=== PATIENT | female | born 1950 | race Caucasian/White ===

== ENCOUNTER 2023-07-04 16:00 | Inpatient (IN) ==
[2023-07-04 16:45] LABS: Venous Bicarbonate HCO3 26.9 mmol/L (24-28)
[2023-07-04 16:49] LABS: ABS Eosinophils 0.1 10^3/uL (0.0-0.5); ABS Lymphocytes 0.2 10^3/uL (1.0-4.8); ABS Neutrophils 9.9 10^3/uL (1.5-7.6); ABS Nucleated RBC 0.01 10^3/ul; Eosinophil % 1.3 %; Hematocrit 43.2 % (35-45); Hemoglobin 14.2 g/dL (11.5-14.3); Lymphocyte % 1.7 %; Mean Corpuscular Volume 90.8 fL (80-97); Mean Platelet Volume 9.1 fL (7.5-11.2); Nucleated Red Blood Cells % 0.1 %/100WBC (0.0-0.8); Platelet Count 178 10^3/uL (150-450); Red Blood Count 4.75 10^6/uL (3.63-4.92); Red Cell Distribution Width 15.1 % (12-17); White Blood Count 10.2 10^3/uL (3.8-11.8)
[2023-07-04 16:59] LABS: Activated Partial Thrombo Time 21.4 seconds (26.0-38.0); INR 1.01 (0.83-1.13)
[2023-07-04] MEDS: Piperacillin/Tazobac 3.375 BAG 3.375 GM/100 ML BAG IV ONE (17:01)
[2023-07-04] MEDS: Acetaminophen IV 1 GM/100ML 1,000 MG/100 ML BAG IV ONE (17:03)
[2023-07-04] MEDS: LACTATED RINGERS SEPSIS IV ONE (17:07)
[2023-07-04 17:20] LABS: Albumin/Globulin Ratio 0.9 (1-3); C Reactive Protein 10.66 mg/L (<8.01); Calcium 9.2 mg/dL (8.6-10.3); Creatinine, Serum 1.27 mg/dL (0.51-0.95); Direct Bilirubin 0.2 mg/dL (0.03-0.18); Globulin 4.5 g/dL (2-4); Indirect Bilirubin 0.4 mg/dL (0.3-1.0); Potassium 3.8 mmol/L (3.5-5.0); Total Bilirubin 0.6 mg/dL (0.2-1.0); Total Protein 8.5 g/dL (6.4-8.9); eGFR CKD-EPI 44.4 (>60)
[2023-07-04 18:39] LABS: High Sensitivity Troponin 1 Hr 7 pg/mL (<15)
[2023-07-04] MEDS ORDERED: NS 0.9% 1000 ml BAG 1,000 ML IV SCH (19:00)
[2023-07-04] MEDS: Iohexol 350 (CONTRAST) 500 ML MDV IV ONE (20:01)
[2023-07-04] MEDS: Lactated Ringers 1000 ml BAG 1,000 ML IV ONE (20:15)
[2023-07-04] MEDS ORDERED: Norepinephrine 4 MG/250mL D5W 4,000 MCG/250 ML BAG IV ONE (20:17)
[2023-07-04] MEDS ORDERED: Rocuronium 50 mg VIAL 10 mg/ml 5 ml VIAL (50 mg) ONE (20:29)
[2023-07-04] MEDS: Norepinephrine 4 MG/250mL D5W 4,000 MCG/250 ML BAG IV SCH (20:45)
[2023-07-04] MEDS: Ketamine HCL 50 mg/ml 10 ml VIAL (500 MG) IV ONE (20:57)
[2023-07-04] MEDS: Rocuronium 50 mg VIAL 10 mg/ml 5 ml VIAL (50 mg) IV ONE (20:58)
[2023-07-04] MEDS ORDERED: Norepinephrine 4 MG/250mL NS 4,000 MCG/250 ML BAG IV SCH (21:00)
[2023-07-04] MEDS ORDERED: Propofol 10 mg/ml 100 ML BTL 1,000 MG/100 ML BTL ONE (21:06)
[2023-07-04] MEDS: NS 0.9% 1000 ml BAG 1,000 ML IV ONE (21:56)
[2023-07-04] MEDS: Ondansetron 4 mg VIAL 2 MG/ML 2 ml VIAL IV ONE ×2 (21:59)
[2023-07-04] MEDS ORDERED: Vancomycin per Pharmacy 1 EA NOTE FOLLOW UP SCH (22:00)
[2023-07-04] MEDS ORDERED: Zosyn per Pharmacy NOTE FOLLOW UP SCH (22:00)
[2023-07-04 22:40] LABS: Resp Rate 16
[2023-07-04 22:44] LABS: PCO2 Arterial 46 mmHg (35-45); PO2 Arterial 225 mmHg (80-100)
[2023-07-05] MEDS: Propofol 10 mg/ml 100 ML BTL 1,000 MG/100 ML BTL IV SCH (00:20)
[2023-07-05] MEDS ORDERED: fentaNYL 100 mcg/2 ml 50 MCG/ML VIAL IV SLOW PU PRN (00:32)
[2023-07-05] MEDS: Vancomycin 1,250 MG in NS 0.9% 250 ml 250 ML IVPB ONE (02:22)
[2023-07-05] MEDS: ZOSYN 3.375 GM x ONE DOSE over 30 miuntes IV (02:32)
[2023-07-05 03:29] LABS: PCO2 Arterial 39 mmHg (35-45); PO2 Arterial 183 mmHg (80-100)
[2023-07-05 04:03] LABS: Urine Specific Gravity 1.049 (1.002-1.030)
[2023-07-05 04:04] LABS: Urine Appearance Clear; Urine Bilirubin Negative (Negative); Urine Blood Negative (Negative); Urine Color Yellow; Urine Glucose Negative (Negative); Urine Ketones Negative (Negative); Urine Nitrite Negative (Negative); Urine Protein Trace (Negative); Urine Urobilinogen 1+ (Negative)
[2023-07-05 04:53] LABS: ABS Basophils 0.1 10^3/uL (0.0-0.1); ABS Eosinophils 1.8 10^3/uL (0.0-0.5); ABS Lymphocytes 0.2 10^3/uL (1.0-4.8); ABS Monocytes 0.3 10^3/uL (0.0-0.9); ABS Neutrophils 11.8 10^3/uL (1.5-7.6); Eosinophil % 12.6 %; Hematocrit 40.1 % (35-45); Hemoglobin 13.5 g/dL (11.5-14.3); Lymphocyte % 1.7 %; Mean Corpuscular Hemoglobin 30.1 pg (27-33); Mean Corpuscular Hgb Conc 33.7 g/dL (31-36); Mean Corpuscular Volume 89.4 fL (80-97); Mean Platelet Volume 9.2 fL (7.5-11.2); Platelet Count 180 10^3/uL (150-450); Red Blood Count 4.49 10^6/uL (3.63-4.92); Red Cell Distribution Width 15.3 % (12-17); White Blood Count 14.3 10^3/uL (3.8-11.8)
[2023-07-05 05:11] LABS: Albumin 2.8 g/dL (3.2-5.2); Albumin/Globulin Ratio 0.8 (1-3); Calcium 7.5 mg/dL (8.6-10.3); Creatinine, Serum 1.07 mg/dL (0.51-0.95); Globulin 3.4 g/dL (2-4); Potassium 3.8 mmol/L (3.5-5.0); Total Bilirubin 0.6 mg/dL (0.2-1.0); Total Protein 6.2 g/dL (6.4-8.9); eGFR CKD-EPI 54.5 (>60)
[2023-07-05] MEDS: ZOSYN 3.375 GM Q8H per EXTENDED INFUSION IV SCH ×2 (05:11→07:11)
[2023-07-05] MEDS: Chlorhexidine MOUTHWASH 0.12% 15 ML UDC TOPICAL SCH (05:43)
[2023-07-05] MEDS: NS 0.9% 1000 ml BAG 1,000 ML IV SCH (07:11)
[2023-07-05] MEDS: Magnesium Sulfate 2 gm BAG 2 GM/50 ML BAG IVPB ONE (07:44)
[2023-07-05] MEDS: Enoxaparin 40 MG/0.4 ML SYR SUBCUT SCH (07:47)
[2023-07-05] MEDS: Pantoprazole VIAL 40 MG VIAL IV SCH (07:48)
[2023-07-05] MEDS: Magnesium Sulfate IV 1GM/100ML 1 GM/100 ML BAG IV ONE (09:55)
[2023-07-05] MEDS: Morphine ER 30 mg TAB ** extended release PO SCH (12:14)
[2023-07-05] MEDS: NS 0.9% 500 ml BAG 500 ML IV ONE (14:29)
[2023-07-05] MEDS ORDERED: Lactated Ringers 1000 ml BAG 1,000 ML IV SCH ×2 (15:00)
[2023-07-05] MEDS ORDERED: Albuterol HFA INHALER 8 gm MDI INH PRN (15:27)
[2023-07-05] MEDS: Nicotine PATCH 7 MG/24 HR PATCH TRANSDERM SCH (19:04)
[2023-07-05] MEDS: CMCS: FluvoxaMINE 50 mg TAB (NF) PO SCH (20:10)
[2023-07-05] MEDS: Triamcinolone 0.025% OINT 15 GM TUBE TOPICAL SCH (20:15)
[2023-07-06] MEDS: Morphine ER 30 mg TAB ** extended release PO ONE (01:14)
[2023-07-06 04:58] LABS: Hematocrit 33.2 % (35-45); Mean Corpuscular Hemoglobin 29.8 pg (27-33); Mean Corpuscular Hgb Conc 33.2 g/dL (31-36); Mean Platelet Volume 9.4 fL (7.5-11.2); Platelet Count 115 10^3/uL (150-450); Red Blood Count 3.69 10^6/uL (3.63-4.92); Red Cell Distribution Width 15.1 % (12-17); White Blood Count 8.7 10^3/uL (3.8-11.8)
[2023-07-06 05:36] LABS: Calcium 7.6 mg/dL (8.6-10.3); Creatinine, Serum 1.2 mg/dL (0.51-0.95); Magnesium 2.1 mg/dL (1.9-2.7); Potassium 3.7 mmol/L (3.5-5.0); eGFR CKD-EPI 47.5 (>60)
[2023-07-06] MEDS: Phenol 1.4% Throat Spray BTL MT PRN (05:55)
[2023-07-06] MEDS ORDERED: Vancomycin 1000 MG in NS 0.9% 250 ML IVPB SCH (06:00)
[2023-07-06 06:14] LABS: ABS Eosinophils 2.9 10^3/uL (0.0-0.5); ABS Lymphocytes 0.9 10^3/uL (1.0-4.8); ABS Monocytes 0.4 10^3/uL (0.0-0.9); ABS Neutrophils 4.2 10^3/uL (1.5-7.6); Eosinophil % 34.5 %; Lymphocyte % 10.9 %
[2023-07-07 07:29] LABS: Calcium 7.7 mg/dL (8.6-10.3); Creatinine, Serum 1.13 mg/dL (0.51-0.95); Potassium 4.4 mmol/L (3.5-5.0); eGFR CKD-EPI 51.1 (>60)
[2023-07-07 07:52] LABS: Hematocrit 35.9 % (35-45); Hemoglobin 11.9 g/dL (11.5-14.3); Mean Corpuscular Hemoglobin 30.1 pg (27-33); Mean Corpuscular Hgb Conc 33.1 g/dL (31-36); Mean Corpuscular Volume 90.8 fL (80-97); Mean Platelet Volume 10.2 fL (7.5-11.2); Platelet Count 111 10^3/uL (150-450); Red Blood Count 3.95 10^6/uL (3.63-4.92); Red Cell Distribution Width 15.5 % (12-17); White Blood Count 7.2 10^3/uL (3.8-11.8)
[2023-07-07 08:43] LABS: ABS Basophils 0.1 10^3/uL (0.0-0.1); ABS Eosinophils 2.5 10^3/uL (0.0-0.5); ABS Lymphocytes 0.9 10^3/uL (1.0-4.8); ABS Monocytes 0.4 10^3/uL (0.0-0.9); ABS Neutrophils 3.3 10^3/uL (1.5-7.6); Eosinophil % 34.5 %; Lymphocyte % 11.9 %
[2023-07-07 09:18] VITALS: BP 119/59
[2023-07-08] MEDS ORDERED: Vancomycin Trough Check NOTE FOLLOW UP ONE (05:30)
== END 2023-07-07 13:15 | disposition home or self-care (01) | DRG 871 ==
LOC: ED 16:00 → EDHOLD 21:18 → ICU 23:46 → MED 07-05 00:21
PROVIDERS: ADMIT Surgery Surgical Critical Care; ATTEND Internal Medicine

== ENCOUNTER 2024-03-12 01:09 | Inpatient (IN) ==
[2024-03-12 04:09] LABS: ABS Basophils 0.1 10^3/uL (0.0-0.1); ABS Lymphocytes 0.4 10^3/uL (1.0-4.8); ABS Monocytes 0.9 10^3/uL (0.0-0.9); ABS Neutrophils 15.9 10^3/uL (1.5-7.6); ABS Nucleated RBC 0.01 10^3/ul; Hemoglobin 13.6 g/dL (11.5-14.3); Lymphocyte % 2.1 %; Mean Corpuscular Hemoglobin 29.8 pg (27-33); Mean Corpuscular Volume 90.1 fL (80-97); Mean Platelet Volume 9.8 fL (7.5-11.2); Platelet Count 152 10^3/uL (150-450); Red Blood Count 4.55 10^6/uL (3.63-4.92); Red Cell Distribution Width 14.4 % (12-17); White Blood Count 17.2 10^3/uL (3.8-11.8)
[2024-03-12 04:22] LABS: Urine Appearance Extra Turbid; Urine Bacteria 3+ /HPF (Absent); Urine Bilirubin 1+ (Negative); Urine Blood 3+ (Negative); Urine Color Dark-Yellow; Urine Glucose Negative (Negative); Urine Ketones 2+ (Negative); Urine Nitrite 2+ (Negative); Urine Protein 2+ (>=100 mg/dL) (Negative); Urine Red Blood Cell 2+(6-10/hpf) /HPF (0-Trace); Urine Squamous Epithelial Cell Present /HPF (Absent); Urine Urobilinogen 3+ (Negative); Urine White Blood Cell 3+(>20/hpf) /HPF (0-Trace); Urine pH 6.5 (5.0-8.0)
[2024-03-12] MEDS ORDERED: Gabapentin 600 mg TAB (NF) PO ONE (04:55)
[2024-03-12 04:59] LABS: Calcium 8.3 mg/dL (8.6-10.3); Creatinine, Serum 0.91 mg/dL (0.51-0.95); Potassium 3.5 mmol/L (3.5-5.0); eGFR CKD-EPI 65.8 (>60)
[2024-03-12 05:09] LABS: Albumin 3.3 g/dL (3.2-5.2); Albumin/Globulin Ratio 0.9 (1-3); Globulin 3.8 g/dL (2-4); Total Protein 7.1 g/dL (6.4-8.9)
[2024-03-12] MEDS: cefTRIAXone 1 gm/50 mL D5W 1 GM/50 ML BAG IV ONE (05:17)
[2024-03-12] MEDS: NS 0.9% 1000 ml BAG 1,000 ML IV SCH ×2 (05:37→10:21)
[2024-03-12] MEDS: Morphine 4 MG/ML VIAL (1 ml) IV ONE (05:43)
[2024-03-12] MEDS ORDERED: Albuterol HFA INHALER 8 gm MDI INH PRN (09:50)
[2024-03-12] MEDS: Morphine ER 30 mg TAB ** extended release PO SCH (10:20)
[2024-03-12] MEDS: Linaclotide 290 mcg CAP (NF) PO SCH (10:23)
[2024-03-12] MEDS: Enoxaparin 40 MG/0.4 ML SYR SUBCUT SCH (18:32)
[2024-03-12] MEDS: CMC:FluvoxaMINE 50 mg TAB (NF) PO SCH (20:11)
[2024-03-13] MEDS: cefTRIAXone 1 gm/50 mL D5W 1 GM/50 ML BAG IV SCH (04:32)
[2024-03-13 06:03] LABS: ABS Basophils 0.1 10^3/uL (0.0-0.1); ABS Eosinophils 0.3 10^3/uL (0.0-0.5); ABS Lymphocytes 0.8 10^3/uL (1.0-4.8); ABS Monocytes 0.6 10^3/uL (0.0-0.9); ABS Neutrophils 7.7 10^3/uL (1.5-7.6); Eosinophil % 3.2 %; Hematocrit 39.4 % (35-45); Hemoglobin 13.2 g/dL (11.5-14.3); Mean Corpuscular Hemoglobin 30.2 pg (27-33); Mean Corpuscular Hgb Conc 33.4 g/dL (31-36); Mean Corpuscular Volume 90.6 fL (80-97); Mean Platelet Volume 10.7 fL (7.5-11.2); Nucleated Red Blood Cells % 0.1 %/100WBC (0.0-0.8); Platelet Count 138 10^3/uL (150-450); Red Blood Count 4.35 10^6/uL (3.63-4.92); Red Cell Distribution Width 14.6 % (12-17); White Blood Count 9.5 10^3/uL (3.8-11.8)
[2024-03-13 07:53] LABS: Anion Gap 11 mmol/L (2-16); Blood Urea Nitrogen 13 mg/dL (6-24); CO2 Carbon Dioxide 22 mmol/L (22-32); Calcium 7.5 mg/dL (8.6-10.3); Chloride 105 mmol/L (101-111); Creatinine, Serum 0.84 mg/dL (0.51-0.95); Glucose 70 mg/dL (70-100); Sodium 138 mmol/L (135-145); eGFR CKD-EPI 72.4 (>60)
[2024-03-13] MEDS: Aspirin EC 81 mg TAB.EC (enteric coated) PO SCH (09:24)
[2024-03-13 12:39] LABS: Magnesium 1.9 mg/dL (1.9-2.7)
[2024-03-13 13:03] LABS: Creatine Kinase 2290 U/L (10-223)
[2024-03-13] MEDS: Potassium Chlor 20 meq TAB.ER PO ONE (15:12)
[2024-03-13] MEDS: NS 0.9% 1000 ml BAG 1,000 ML IV SCH (16:59)
[2024-03-13] MEDS: Enoxaparin 40 MG/0.4 ML SYR SUBCUT SCH (18:29)
[2024-03-14 06:14] LABS: ABS Basophils 0.1 10^3/uL (0.0-0.1); ABS Eosinophils 0.5 10^3/uL (0.0-0.5); ABS Lymphocytes 0.5 10^3/uL (1.0-4.8); ABS Monocytes 0.5 10^3/uL (0.0-0.9); ABS Neutrophils 3.8 10^3/uL (1.5-7.6); Eosinophil % 9.6 %; Hematocrit 35.1 % (35-45); Hemoglobin 11.6 g/dL (11.5-14.3); Lymphocyte % 9.2 %; Mean Corpuscular Hgb Conc 33.1 g/dL (31-36); Mean Corpuscular Volume 90.8 fL (80-97); Mean Platelet Volume 10.2 fL (7.5-11.2); Nucleated Red Blood Cells % 0.1 %/100WBC (0.0-0.8); Platelet Count 160 10^3/uL (150-450); Red Blood Count 3.87 10^6/uL (3.63-4.92); Red Cell Distribution Width 14.4 % (12-17); White Blood Count 5.4 10^3/uL (3.8-11.8)
[2024-03-14 06:32] LABS: Creatinine, Serum 0.79 mg/dL (0.51-0.95); Magnesium 1.7 mg/dL (1.9-2.7); Potassium 4.1 mmol/L (3.5-5.0)
[2024-03-14] MEDS: Magnesium Sulfate 2 gm BAG 2 GM/50 ML BAG IVPB ONE (08:03)
[2024-03-15] MEDS: Sulfamethox/Trimethoprim DS TAB 800/160 mg PO SCH (09:14)
[2024-03-15 09:22] LABS: Calcium 7.7 mg/dL (8.6-10.3); Creatinine, Serum 0.78 mg/dL (0.51-0.95); Magnesium 1.9 mg/dL (1.9-2.7); Potassium 4.3 mmol/L (3.5-5.0); eGFR CKD-EPI 79.2 (>60)
[2024-03-15 09:40] VITALS: BP 135/78
== END 2024-03-15 12:30 | disposition home health service (06) | DRG 565 ==
LOC: ED 01:09 → SUATTDRO 06:57 → EDHOLD 06:57 → MED 13:35
PROVIDERS: ADMIT Hospitalist; ATTEND Internal Medicine